=== PATIENT | female | born 1990 | race African-American/Black ===

== ENCOUNTER 2022-05-24 17:08 | Emergency (ER) | payer MEDICAID, OTHER ==
[~2022-05-24] VITALS: Ht 167.6 cm; Wt 94.0 kg
[2022-05-24 17:28] VITALS: BP 141/90
== END 2022-05-24 23:32 | disposition left against medical advice (07) ==
LOC: ER 17:08
DX: Z53.21 Procedure and treatment not carried out due to patient leaving prior to being seen by health care provider (principal)